=== PATIENT | female | born 1970 | race Caucasian/White ===

== ENCOUNTER 2018-02-24 12:36 | Inpatient (IN) ==
[2018-02-24 13:00] LABS: Bilirubin,Urine Negative (Negative); Blood,Urine Trace (Negative); Clarity,Urine Clear (Clear); Color,Urine Yellow (Yellow); Glucose,Urine (UA) Normal (Normal); Ketones,Urine Negative (Negative); Leukocyte Esterase,Urine Negative (Negative); Nitrite,Urine Negative (Negative); PH,Urine 6.5 pH Units (5.0-8.0); Protein,Urine >=300 mg/dL (Neg-Trace); Specific Gravity,Urine 1.017 (1.010-1.025); Urobilinogen,Urine Normal (Normal)
[2018-02-24 13:03] LABS: Bacteria,Urine None Seen per hpf (None-Few); Hyaline Casts,Urine None Seen per lpf (None-Few); Squamous Epithelial Cell,Urine Many per lpf (None-Few)
[2018-02-24 15:04] LABS: Albumin 4.2 g/dL (3.5-5.7); Albumin/Globulin Ratio 1.3 (1.1-2.2); Bilirubin,Direct 0.1 mg/dL (0.0-0.2); Bilirubin,Indirect 0.2 mg/dL (0.0-1.2); Bilirubin,Total 0.3 mg/dL (0.3-1.0); Calcium 9.2 mg/dL (8.6-10.3); Globulin 3.3 g/dL (2.4-3.5); Total Protein 7.5 g/dL (6.4-8.9)
[2018-02-24 15:18] LABS: Basophils % 0.4 %; Eosinophils # 0.1 K/mcL (0.0-0.6); Eosinophils % 0.8 %; Hematocrit 33.2 % (35.3-44.9); Hemoglobin 10.8 g/dL (11.5-15.4); Immature Granulocytes % 0.7 % (0-4); Lymphocytes # 1.6 K/mcL (0.6-4.6); Lymphocytes % 21.2 %; Mean Corpuscular HGB Conc 32.5 g/dL (31.6-35.5); Mean Corpuscular Hemoglobin 29.3 pg (28.0-33.3); Mean Platelet Volume 10.5 fL (9.4-12.4); Monocytes # 0.4 K/mcL (0.0-1.3); Monocytes % 4.7 %; Neutrophils # 5.6 K/mcL (1.6-8.9); Platelet Count 195 K/mcL (140-400); Red Blood Count 3.69 M/mcL (3.82-4.97); Red Cell Distribution Width 14.6 % (11.5-14.5); Segmented Neutrophils % 72.2 %
[2018-02-24] MEDS ORDERED: *HR* FentaNYL (PF) 100 MCG/2 ML VIAL IVP ONE ×2 (15:24→16:45)
[2018-02-24] MEDS ORDERED: Ondansetron 4 MG/2 ML VIAL IVP ONE (15:24)
[2018-02-24] MEDS ORDERED: 0.9 % Sodium Chloride 1,000 ML IVC ONE (15:42)
--- NOTE | 2018-02-24 15:45 | Emergency Department Note ---
Disposition Clinical Impression: Pyelonephritis, Left flank pain, Hyperkalemia Pneumonia Qualifiers: Pneumonia type: aspiration pneumonia Aspiration pneumonia type: due to gastric secretions Laterality: right Lung location: lower lobe of lung Qualified Code(s) : J69.0 - Pneumonitis due to inhalation of food and vomit Disposition: Admitted As Inpatient Condition: Fair General Adult HPI - General Chief complaint: ED Abdominal Pain Stated complaint: ABD PAIN Time Seen by Provider: 02/24/18 14:57 Source: patient Limitations: no limitations - History of Present Illness Pain Scale: 10 - Related Data Home Medications Medication Instructions Recorded Confirmed Allopurinol [Zyloprim 100 MG] 100 mg PO DAILY 02/24/18 02/24/18 Calcitriol [Rocaltrol] 0.25 mcg PO DAILY 02/24/18 02/24/18 Enalapril Maleate [Vasotec] 20 mg PO DAILY 02/24/18 02/24/18 Glimepiride [Amaryl] 4 mg PO QAM 02/24/18 02/24/18 Levothyroxine [Synthroid] 75 mcg PO 0630 02/24/18 02/24/18 Sodium Bicarbonate 650 mg PO BID 02/24/18 02/24/18 amLODIPine [Norvasc] 5 mg PO BID 02/24/18 02/24/18 Allergies Allergy/AdvReac Type Severity Reaction Status Date / Time No Known Allergies Allergy Verified 11/16/16 16:44 Past Medical History - Past Medical History Medical history: Reports: diabetes, hypertension, renal disease Psychiatric history: Reports: no psych history - Social History Smoking Status: Never smoker Smokeless Tobacco Status: No Alcohol use: Reports: none Drug use: Reports: none Physical Exam - General Limitations: no limitations General appearance: alert, in no apparent distress Course Vital Signs Temperature 97.9 F 02/24/18 12:44 Pulse Rate 96 02/24/18 12:44 Respiratory Rate 18 02/24/18 12:44 Blood Pressure 156/113 02/24/18 12:44 O2 Sat by Pulse Oximetry 100 02/24/18 12:44 Temperature 97.9 F 02/25/18 20:02 Pulse Rate 80 02/25/18 20:02 Respiratory Rate 18 02/25/18 20:02 Blood Pressure 140/87 02/25/18 20:02 O2 Sat by Pulse Oximetry 99 02/25/18 20:02 Oxygen Delivery Oxygen Delivery Room Air Medical Decision Making - Lab Data Result diagrams: 02/25/18 04:48 02/25/18 04:48 Lab Results 02/24/18 02/24/18 02/24/18 Range/Units 12:44 12:44 13:47 WBC (4.3-11.1) K/mcL RBC (3.82-4.97) M/mcL Hgb (11.5-15.4) g/dL Hct (35.3-44.9) % MCV (83.0-100.0) fL MCH (28.0-33.3) pg MCHC (31.6-35.5) g/dL RDW (11.5-14.5) % Plt Count (140-400) K/mcL MPV (9.4-12.4) fL Immature Gran % (0-4) % Seg Neutrophils % % Lymphocytes % % Monocytes % % Eosinophils % % Basophils % % Neutrophils # (1.6-8.9) K/mcL Lymphocytes # (0.6-4.6) K/mcL Monocytes # (0.0-1.3) K/mcL Eosinophils # (0.0-0.6) K/mcL Basophils # (0.0-0.2) K/mcL Sodium 138 (136-145) mEq/L Potassium 6.0 H (3.5-5.1) mEq/L Chloride 114 H (98-107) mEq/L Carbon Dioxide 16 L (23-29) mEq/L BUN 37 H (6-20) mg/dL Creatinine 2.85 H (0.60-1.20) mg/dL Est GFR ( Amer) 22 L (> 60) Est GFR (Non-Af Amer) 18 L (> 60) BUN/Creatinine Ratio 13 (6-26) Glucose 84 (70-105) mg/dL POC Glucose (70-99) mg/dL Calculated Osmolality 294 (280-300) Calcium 9.2 (8.6-10.3) mg/dL Total Bilirubin 0.3 (0.3-1.0) mg/dL Direct Bilirubin 0.1 (0.0-0.2) mg/dL Indirect Bilirubin 0.2 (0.0-1.2) mg/dL AST 15 (13-39) Units/L ALT 12 (7-52) Units/L Alkaline Phosphatase 116 H (34-104) Units/L Serum Total Protein 7.5 (6.4-8.9) g/dL Albumin 4.2 (3.5-5.7) g/dL Globulin 3.3 (2.4-3.5) g/dL Albumin/Globulin Ratio 1.3 (1.1-2.2) Amylase 54 (29-103) Units/L Lipase 19 (11-82) Units/L Urine Color Yellow (Yellow) Urine Clarity Clear (Clear) Urine pH 6.5 (5.0-8.0) pH Units Ur Specific [place] 1.017 (1.010-1.025) Urine Protein >=300 H (Neg-Trace) mg/dL Urine Glucose (UA) Normal (Normal) mg/dL Urine Ketones Negative (Negative) mg/dL Urine Blood Trace H (Negative) Urine Nitrite Negative (Negative) Urine Bilirubin Negative (Negative) Urine Urobilinogen Normal (Normal) mg/dL Ur Leukocyte Esterase Negative (Negative) Urine Microscopic RBC 3-5 H (0-3) per hpf Urine Microscopic WBC 5-15 H (0-3) per hpf Ur Squamous Epith Cells Many H (None-Few) per lpf Urine Bacteria None Seen (None-Few) per hpf Hyaline Casts None Seen (None-Few) per lpf Ur Culture Indicated? NO (NO) Urine Test Negative (Negative) 02/24/18 02/24/18 Range/Units 15:09 20:31 WBC 7.7 (4.3-11.1) K/mcL RBC 3.69 L (3.82-4.97) M/mcL Hgb 10.8 L (11.5-15.4) g/dL Hct 33.2 L (35.3-44.9) % MCV 90.0 (83.0-100.0) fL MCH 29.3 (28.0-33.3) pg MCHC 32.5 (31.6-35.5) g/dL RDW 14.6 H (11.5-14.5) % Plt Count 195 (140-400) K/mcL MPV 10.5 (9.4-12.4) fL Immature Gran % 0.7 (0-4) % Seg Neutrophils % 72.2 % Lymphocytes % 21.2 % Monocytes % 4.7 % Eosinophils % 0.8 % Basophils % 0.4 % Neutrophils # 5.6 (1.6-8.9) K/mcL Lymphocytes # 1.6 (0.6-4.6) K/mcL Monocytes # 0.4 (0.0-1.3) K/mcL Eosinophils # 0.1 (0.0-0.6) K/mcL Basophils # 0.0 (0.0-0.2) K/mcL Sodium (136-145) mEq/L Potassium (3.5-5.1) mEq/L Chloride (98-107) mEq/L Carbon Dioxide (23-29) mEq/L BUN (6-20) mg/dL Creatinine (0.60-1.20) mg/dL Est GFR ( Amer) (> 60) Est GFR (Non-Af Amer) (> 60) BUN/Creatinine Ratio (6-26) Glucose (70-105) mg/dL POC Glucose 78 (70-99) mg/dL Calculated Osmolality (280-300) Calcium (8.6-10.3) mg/dL Total Bilirubin (0.3-1.0) mg/dL Direct Bilirubin (0.0-0.2) mg/dL Indirect Bilirubin (0.0-1.2) mg/dL AST (13-39) Units/L ALT (7-52) Units/L Alkaline Phosphatase (34-104) Units/L Serum Total Protein (6.4-8.9) g/dL Albumin (3.5-5.7) g/dL Globulin (2.4-3.5) g/dL Albumin/Globulin Ratio (1.1-2.2) Amylase (29-103) Units/L Lipase (11-82) Units/L Urine Color (Yellow) Urine Clarity (Clear) Urine pH (5.0-8.0) pH Units Ur Specific [place] (1.010-1.025) Urine Protein (Neg-Trace) mg/dL Urine Glucose (UA) (Normal) mg/dL Urine Ketones (Negative) mg/dL Urine Blood (Negative) Urine Nitrite (Negative) Urine Bilirubin (Negative) Urine Urobilinogen (Normal) mg/dL Ur Leukocyte Esterase (Negative) Urine Microscopic RBC (0-3) per hpf Urine Microscopic WBC (0-3) per hpf Ur Squamous Epith Cells (None-Few) per lpf Urine Bacteria (None-Few) per hpf Hyaline Casts (None-Few) per lpf Ur Culture Indicated? (NO) Urine Test (Negative) Attestation Statement - Attestation Attestation: I examined this patient and my medical decision-making was reviewed with the DEICER INSPECTOR [employer]IC/PA/Advanced Practice Nurse/Resident Physician. I agree with the documented findings, disposition and treatment plan as described except to the extent set forth below. I did review the old record and saw the patient in the [facility] she does have a history of chronic renal failure who presents with gradual onset of left flank and left lower abdominal pain which began at home last night and is constant and she denies any dysuria or urinary frequency, blood in the urine or stool, vaginal bleeding or discharge, fever or vomiting. I did review the labs showing hyperkalemia and did add on a EKG and sash installer and IV fluids and the patient does also have some acidosis and will have a CT scan. She states her last CT of the abdomen was 5 years ago 1544 I did review the patient's EKG showing normal sinus rhythm with rate of 78 without acute ischemic change. Patient's CT does show inflammation of the left kidney as well as a new infiltrate and I did speak with her again and she does have a cough productive of clear sputum which started in the last several days did have a preceding upper respiratory infection. Patient will be admitted for IV antibiotics, she will receive an additional dose of intravenous pain medicine for her left flank pain. No ureteral obstructing stone is seen. 164
[2018-02-24] MEDS ORDERED: cefTRIAXone 1,000 MG in Water for inj. (sterile) 20 ML 20 ML IVPB ONE (16:45)
[2018-02-24] MEDS ORDERED: Azithromycin 250 MG TABLET PO ONE (16:45)
[2018-02-24] MEDS ORDERED: cefTRIAXone 1,000 MG in Water for inj. (sterile) 20 ML 20 ML IVP ONE (17:00)
--- NOTE | 2018-02-24 17:58 | Emergency Department Note ---
Disposition Clinical Impression: Pyelonephritis, Left flank pain, Hyperkalemia Pneumonia Qualifiers: Pneumonia type: due to unspecified organism Laterality: right Lung location: lower lobe of lung Qualified Code(s): J18.1 - Lobar pneumonia, unspecified organism Disposition: Admitted As Inpatient Condition: Fair Time of Disposition: 18:31 General Adult HPI - General Chief complaint: ED Abdominal Pain Stated complaint: ABD PAIN Time Seen by Provider: 02/24/18 14:57 Source: patient Limitations: no limitations Nursing Notes Reviewed: Yes Vital Signs Reviewed: Yes - History of Present Illness HPI Narrative: Patient is a 47-year-old female with a past medical history renal disease, left adrenalectomy, and kidney stones of presenting to the emergency department for the complaint of gradual onset left-sided flank pain radiating into the left lower quadrant of her abdomen. She states that the pain started yesterday evening around 1800 has been gradually worsening since then. She describes as a sharp stabbing pain that is constant without alleviating or exacerbating factors. She denies any fevers, chills, nausea, vomiting, chest pain, shortness of breath, dysuria, frequency, vaginal bleeding or vaginal discharge. Patient states that this pain does feel similar to her kidney stones in the past, which have required stents and ablation. Pain Scale: 10 - Related Data Home Medications Medication Instructions Recorded Confirmed Allopurinol [Zyloprim 100 MG] 100 mg PO DAILY 02/24/18 02/24/18 Calcitriol [Rocaltrol] 0.25 mcg PO DAILY 02/24/18 02/24/18 Enalapril Maleate [Vasotec] 20 mg PO DAILY 02/24/18 02/24/18 Glimepiride [Amaryl] 4 mg PO QAM 02/24/18 02/24/18 Levothyroxine [Synthroid] 75 mcg PO 0630 02/24/18 02/24/18 Sodium Bicarbonate 650 mg PO BID 02/24/18 02/24/18 amLODIPine [Norvasc] 5 mg PO BID 02/24/18 02/24/18 Allergies Allergy/AdvReac Type Severity Reaction Status Date / Time No Known Allergies Allergy Verified 11/16/16 16:44 All systems ED: reviewed and negative except as stated. Review of Systems: As Per HPI Constitutional: Denies: fever, chills Cardiovascular: Denies: chest pain, palpitations Respiratory: Denies: dyspnea Gastrointestinal: Reports: abdominal pain. Denies: nausea, vomiting, diarrhea Genitourinary: Denies: urgency, dysuria, frequency, hematuria, discharge, abnormal menses Musculoskeletal: Reports: back pain Integumentary: Denies: rash Past Medical History - Past Medical History Attestation: Yes The following information was validated with the patient. Medical history: Reports: diabetes, hypertension, renal disease Psychiatric history: Reports: no psych history - Social History Smoking Status: Never smoker Smokeless Tobacco Status: No Alcohol use: Reports: none Drug use: Reports: none Physical Exam CONSTITUTIONAL: Alert and oriented X3, well-nourished, well appearing, in no apparent distress. HEAD: Normocephalic; atraumatic. EYES: PERRL, no scleral icterus. NOSE: The nose is normal in appearance without rhinorrhea RESP: Normal chest excursion with respiration; breath sounds clear and equal bilaterally; no wheezes, rhonchi, or rales CARD: Regular rhythm, without murmurs, rub or gallop ABD: Non-distended; non-tender, soft,without rigidity, rebound or guarding. Patient has essentially no pain with palpation. SKIN: Normal for age and race; warm and dry; no apparent lesions - General Limitations: no limitations General appearance: alert, in no apparent distress Course Course Narrative: At this time the plan is to treat the patient's pain will also order lab work to evaluate for abdominal etiology of the patient's pain which will include hepatic panel, metabolic panel, CBC, UA and we will also perform a CT scan of the abdomen and pelvis to rule out a kidney stone. Discussed this with the patient she agrees with this plan. - Reevaluation(s) Reevaluation #1: On reevaluation the patient states that her pain improved for a few minutes with the initial dose of fentanyl however her pain came right back so plan is to give her an additional dose that that does not work we will consider a different medication. The patient's CT scan of her abdomen and pelvis was interpreted by the radiologist as a possible right lower lobe infectious versus inflammatory process and nonspecific left perinephric edema/inflammation. On reevaluation of the patient she does admit to a cough over the past 3 days. Given these findings the plan at this time is to start the patient antibiotic coverage for a possible pneumonia as well as pyelonephritis. The patient's UA was negative for infection at this time, however given the CT findings with the inflammation that is perinephric we will initiate antibiotics. Discussed this plan with the patient I also discussed this plan with the hospitalist on-call, Dr. Hernandez, and she agrees to accept the patient. Time: 18:57 Vital Signs Temperature 97.9 F 02/24/18 12:44 Pulse Rate 96 02/24/18 12:44 Respiratory Rate 18 02/24/18 12:44 Blood Pressure 156/113 02/24/18 12:44 O2 Sat by Pulse Oximetry 100 02/24/18 12:44 Temperature 97.6 F 02/24/18 23:28 Pulse Rate 77 02/24/18 23:28 Respiratory Rate 16 02/24/18 23:28 Blood Pressure 128/77 02/24/18 23:28 O2 Sat by Pulse Oximetry 97 02/24/18 23:28 Oxygen Delivery Oxygen Delivery Room Air Medical Decision Making - Medical Records Medical records reviewed: Yes I reviewed the patient's medical records. - Lab Data Lab results reviewed: Yes I reviewed the patient's lab results. Result diagrams: 02/24/18 15:09 02/24/18 22:46 Lab Results 02/24/18 02/24/18 02/24/18 Range/Units 12:44 12:44 13:47 WBC (4.3-11.1) K/mcL RBC (3.82-4.97) M/mcL Hgb (11.5-15.4) g/dL Hct (35.3-44.9) % MCV (83.0-100.0) fL MCH (28.0-33.3) pg MCHC (31.6-35.5) g/dL RDW (11.5-14.5) % Plt Count (140-400) K/mcL MPV (9.4-12.4) fL Immature Gran % (0-4) % Seg Neutrophils % % Lymphocytes % % Monocytes % % Eosinophils % % Basophils % % Neutrophils # (1.6-8.9) K/mcL Lymphocytes # (0.6-4.6) K/mcL Monocytes # (0.0-1.3) K/mcL Eosinophils # (0.0-0.6) K/mcL Basophils # (0.0-0.2) K/mcL Sodium 138 (136-145) mEq/L Potassium 6.0 H (3.5-5.1) mEq/L Chloride 114 H (98-107) mEq/L Carbon Dioxide 16 L (23-29) mEq/L BUN 37 H (6-20) mg/dL Creatinine 2.85 H (0.60-1.20) mg/dL Est GFR ( Amer) 22 L (> 60) Est GFR (Non-Af Amer) 18 L (> 60) BUN/Creatinine Ratio 13 (6-26) Glucose 84 (70-105) mg/dL Calculated Osmolality 294 (280-300) Calcium 9.2 (8.6-10.3) mg/dL Total Bilirubin 0.3 (0.3-1.0) mg/dL Direct Bilirubin 0.1 (0.0-0.2) mg/dL Indirect Bilirubin 0.2 (0.0-1.2) mg/dL AST 15 (13-39) Units/L ALT 12 (7-52) Units/L Alkaline Phosphatase 116 H (34-104) Units/L Serum Total Protein 7.5 (6.4-8.9) g/dL Albumin 4.2 (3.5-5.7) g/dL Globulin 3.3 (2.4-3.5) g/dL Albumin/Globulin Ratio 1.3 (1.1-2.2) Amylase 54 (29-103) Units/L Lipase 19 (11-82) Units/L Urine Color Yellow (Yellow) Urine Clarity Clear (Clear) Urine pH 6.5 (5.0-8.0) pH Units Ur Specific [place] 1.017 (1.010-1.025) Urine Protein >=300 H (Neg-Trace) mg/dL Urine Glucose (UA) Normal (Normal) mg/dL Urine Ketones Negative (Negative) mg/dL Urine Blood Trace H (Negative) Urine Nitrite Negative (Negative) Urine Bilirubin Negative (Negative) Urine Urobilinogen Normal (Normal) mg/dL Ur Leukocyte Esterase Negative (Negative) Urine Microscopic RBC 3-5 H (0-3) per hpf Urine Microscopic WBC 5-15 H (0-3) per hpf Ur Squamous Epith Cells Many H (None-Few) per lpf Urine Bacteria None Seen (None-Few) per hpf Hyaline Casts None Seen (None-Few) per lpf Ur Culture Indicated? NO (NO) Urine Test Negative (Negative) 02/24/18 Range/Units 15:09 WBC 7.7 (4.3-11.1) K/mcL RBC 3.69 L (3.82-4.97) M/mcL Hgb 10.8 L (11.5-15.4) g/dL Hct 33.2 L (35.3-44.9) % MCV 90.0 (83.0-100.0) fL MCH 29.3 (28.0-33.3) pg MCHC 32.5 (31.6-35.5) g/dL RDW 14.6 H (11.5-14.5) % Plt Count 195 (140-400) K/mcL MPV 10.5 (9.4-12.4) fL Immature Gran % 0.7 (0-4) % Seg Neutrophils % 72.2 % Lymphocytes % 21.2 % Monocytes % 4.7 % Eosinophils % 0.8 % Basophils % 0.4 % Neutrophils # 5.6 (1.6-8.9) K/mcL Lymphocytes # 1.6 (0.6-4.6) K/mcL Monocytes # 0.4 (0.0-1.3) K/mcL Eosinophils # 0.1 (0.0-0.6) K/mcL Basophils # 0.0 (0.0-0.2) K/mcL Sodium (136-145) mEq/L Potassium (3.5-5.1) mEq/L Chloride (98-107) mEq/L Carbon Dioxide (23-29) mEq/L BUN (6-20) mg/dL Creatinine (0.60-1.20) mg/dL Est GFR ( Amer) (> 60) Est GFR (Non-Af Amer) (> 60) BUN/Creatinine Ratio (6-26) Glucose (70-105) mg/dL Calculated Osmolality (280-300) Calcium (8.6-10.3) mg/dL Total Bilirubin (0.3-1.0) mg/dL Direct Bilirubin (0.0-0.2) mg/dL Indirect Bilirubin (0.0-1.2) mg/dL AST (13-39) Units/L ALT (7-52) Units/L Alkaline Phosphatase (34-104) Units/L Serum Total Protein (6.4-8.9) g/dL Albumin (3.5-5.7) g/dL Globulin (2.4-3.5) g/dL Albumin/Globulin Ratio (1.1-2.2) Amylase (29-103) Units/L Lipase (11-82) Units/L Urine Color (Yellow) Urine Clarity (Clear) Urine pH (5.0-8.0) pH Units Ur Specific [place] (1.010-1.025) Urine Protein (Neg-Trace) mg/dL Urine Glucose (UA) (Normal) mg/dL Urine Ketones (Negative) mg/dL Urine Blood (Negative) Urine Nitrite (Negative) Urine Bilirubin (Negative) Urine Urobilinogen (Normal) mg/dL Ur Leukocyte Esterase (Negative) Urine Microscopic RBC (0-3) per hpf Urine Microscopic WBC (0-3) per hpf Ur Squamous Epith Cells (None-Few) per lpf Urine Bacteria (None-Few) per hpf Hyaline Casts (None-Few) per lpf Ur Culture Indicated? (NO) Urine Test (Negative) - Radiology Data Radiology results reviewed: Yes I reviewed the patient's radiology results. Abdomen/Pelvis CT 02/24/18 15:24 IMPRESSION: Ill-defined tree-in-bud opacities within the right lower lobe suggestive of infectious or inflammatory process. Subtle nodular opacities within the left lower lung. Follow-up CT of the chest in 2-3 months is suggested to document resolution. Nonspecific left perinephric edema/inflammation. Correlation with urinalysis for possible infectious process suggested. No bowel obstruction or inflammation. No free intracranial air or fluid. Stable appearing lower abdominal wall fat containing hernia. Rounded fat containing mass within the soft tissues overlying the right sacrum, apparently more condensed and smaller on current examination as compared to the previous study of 05/09/2012. Given that this was present on the previous examination of several years prior, this finding is most likely benign and is suggestive of fat necrosis. However, follow-up CT of the pelvis and 3-4 months can be considered as clinically indicated. D/ / Ghassan Moreau MD / Ghassan Moreau MD Interpreting Provider: Ghassan Moreau MD Chest X-Ray 02/24/18 17:57 IMPRESSION: No acute process. D/ / Jim Stanford MD / Jim Stanford MD Interpreting Provider: Jim Stanford MD
[2018-02-24] MEDS ORDERED: *HR* Nalbuphine 10 MG/ML AMPUL IV STA ×2 (18:53→21:01)
--- NOTE | 2018-02-24 20:14 | Internal Med History&Physical ---
Addendum entered and electronically signed by Milagro Tineo MD 02/24/18 22:02: Hyperkalemia , Likely secondary to chronic decreased GFR. Onset, appears gradual ED courses: EKG in ED. Pt received Sodium Kayexalate Continuous telemetry on floors Repeat BMP pending Continue medical management, based on repeat BMP Continue home bicarbonate Nephrology on consult Original Note: <Milagro Tineo - Last Filed: 02/24/18 21:34> Date of Encounter: 02/24/18 Time of Encounter: 19:54 Assessment and Plan (1) Pyelonephritis Current visit: Yes Status: Acute 47-year-old female with left flank pain and CVA tenderness likely secondary to pyelonephritis vs. nephrolithiasis Urinalysis, with urine culture from clean-catch midstream pending Abdomen and pelvis CT did not demonstrate abscess, remain at high clinical vigilance for complications due to patient's previous history of recurrent nephrolithiasis Outpatient, lab note of elevated uric acid level in March 2017 Renal ultrasound pending Pain management Commence ceftriaxone 14 days, per IDSA guidelines Discussed plan with patient, patient amenable to plan (2) Acute kidney injury superimposed on CKD Current visit: Yes Status: Acute LEONCIO likely secondary to acute interstitial nephritis, with WBCs and RBCs seen on UA, with negative culture, however post-obstructive etiology cannot be excluded CKD Stage 4: GFR in 2017, per outpatient lab 22 IV hydration Avoid nephrotoxic insults -Will hold lisinopril at this time Control of hemodynamic- serial vital signs LEONCIO workup pending Retroperitoneal U/S pending Consult to nephrology, appreciate recs Diet: Diabetic, Renal Diet (3) Abnormal finding on CT scan Current visit: Yes Status: Acute Abdomen/Pelvis CT 02/24/18 15:24 IMPRESSION: Ill-defined tree-in-bud opacities within the right lower lobe suggestive of infectious or inflammatory process. Subtle nodular opacities within the left lower lung. Follow-up CT of the chest in 2-3 months is suggested to document resolution. Recommend Follow-up CT of the chest in 2-3 months, per radiology recommendation. (4) Pneumonia Current visit: Yes Status: Acute Pt endorses cough in ED, however no radiographic evidence of pneumonia at this time. 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 Hold lisinopril due to LEONCIO. PRN hydralazine for BP. Qualifiers: Hypertension type: unspecified Qualified Code(s): I10 - Essential (primary ) hypertension (6) Hypothyroidism Current visit: Yes Status: Chronic Continue home medications Qualifiers: Hypothyroidism type: acquired Qualified Code(s): E03.9 - Hypothyroidism, unspecified (7) Diabetes Current visit: Yes Status: Chronic ISS, will adjust as needed. Acchuchecks q6h. Hypoglycemia protocol ordered Qualifiers: Diabetes mellitus type: type 2 Diabetes mellitus complication status: with kidney complications Diabetes mellitus complication detail: with chronic kidney disease Chronic kidney disease stage: stage 4 (severe) Qualified Code (s): E11.22 - Type 2 diabetes mellitus with diabetic chronic kidney disease; N18.4 - Chronic kidney disease, stage 4 (severe); N18.4 - Chronic kidney disease , stage 4 (severe); N18.4 - Chronic kidney disease, stage 4 (severe); N18.4 - Chronic kidney disease, stage 4 (severe) (8) DVT prophylaxis Current visit: Yes Status: Acute Heparin subcutaneous 5000 U BID Internal Medicine - H&P: HPI Chief complaint: Flank Pain Admitted From: Home History of present illness: Ms. Gray is a 47 year old female with chronic kidney disease stage who presents with gradual onset of left flank pain with and lower abdominal pain, onset last night. Pain started yesterday evening in the back and then radiated to left groin, at a 10/10 and is constant and remains as a 10/10 now. Patient denies dysuria, urinary frequency, hematuria, vaginal bleeding. Quality : "sharp " "stabbing" . No alleviating or exacerbating factors. Symptoms are similar to past kidney stones, of which she's has 2 in the past 10 years, one of which required lithotripsy. Denies fever or emesis. No shortness of breath. No chest pain. Pt maintains she does not take any opioid medications at home. Pt was placed on allopurinol a year ago. Past Med Surg Social Fam HX - Past Medical History Medical history: diabetes, hypertension, renal disease Psychiatric history: no psych history - Social History Smoking Status: Never smoker Smokeless Tobacco Status: No Alcohol use: none Drug use: none Internal Medicine - H&P: Meds Allopurinol [Zyloprim 100 MG] 100 mg PO DAILY 02/24/18 [History] Calcitriol [Rocaltrol] 0.25 mcg PO DAILY 02/24/18 [History] Enalapril Maleate [Vasotec] 20 mg PO DAILY 02/24/18 [History] Glimepiride [Amaryl] 4 mg PO QAM 02/24/18 [History] Levothyroxine [Synthroid] 75 mcg PO 0630 02/24/18 [History] Sodium Bicarbonate 650 mg PO BID 02/24/18 [History] amLODIPine [Norvasc] 5 mg PO BID 02/24/18 [History] 3 Allergy/AdvReac Type Severity Reaction Status Date / Time No Known Allergies Allergy Verified 11/16/16 16:44 All Systems PM: A 10-system review of systems was performed and is negative for pertinent findings except as documented above in the HPI. - Constitutional Constitutional: as per HPI - Cardiovascular Cardiovascular ROS IM: as per HPI - Respiratory Respiratory: as per HPI - Gastrointestinal Gastrointestinal: as per HPI - Musculoskeletal Musculoskeletal ROS IM: as per HPI - Constitutional Vitals: Temp Pulse Resp BP Pulse Ox 97.9 F 75 14 154/92 98 02/24/18 12:44 02/24/18 19:02 02/24/18 19:02 02/24/18 19:02 02/24/18 19:02 General appearance: Present: mild distress, A&O X 3, obese Exam: short answers - Head Head exam: Present: atraumatic, normocephalic - Respiratory Respiratory exam: Absent: accessory muscle use, chest wall tenderness, respiratory distress, wheezes Additional comments: crackles - Cardiovascular Cardiovascular exam: Present: RRR, +S1, +S2 - GI/Abdominal GI/Abdominal exam: Present: normal bowel sounds, no peritoneal signs. Absent: rigid Additional comments: No flank pain on palpation. No flank discoloration on either side. CVA tenderness on L. No CVA tenderness on R. - Extremities Exam Extremities exam: Present: normal capillary refill. Absent: cyanotic, pedal edema, tenderness - Neurological Exam Neurological exam: Present: alert, strengths equal and symetr throughout. Absent: facial droop, speech deficit Internal Med - H&P Results - Labs CBC & Chem 7: 02/24/18 15:09 02/24/18 13:47 - Impressions ITS Impressions Abdomen/Pelvis CT 02/24/18 15:24 IMPRESSION: Ill-defined tree-in-bud opacities within the right lower lobe suggestive of infectious or inflammatory process. Subtle nodular opacities within the left lower lung. Follow-up CT of the chest in 2-3 months is suggested to document resolution. Nonspecific left perinephric edema/inflammation. Correlation with urinalysis for possible infectious process suggested. No bowel obstruction or inflammation. No free intracranial air or fluid. Stable appearing lower abdominal wall fat containing hernia. Rounded fat containing mass within the soft tissues overlying the right sacrum, apparently more condensed and smaller on current examination as compared to the previous study of 05/09/2012. Given that this was present on the previous examination of several years prior, this finding is most likely benign and is suggestive of fat necrosis. However, follow-up CT of the pelvis and 3-4 months can be considered as clinically indicated. D/ / Ghassan Moreau MD / Ghassan Moreau MD Interpreting Provider: Ghassan Moreau MD Chest X-Ray 02/24/18 17:57 IMPRESSION: No acute process. D/ / Jim Stanford MD / Jim Stanford MD Interpreting Provider: Jim Stanford MD INATION: RETROPERITONEAL ULTRASOUND OF THE KIDNEYS AND URINARY BLADDER 04/04/2017 COMPARISON: CT abdomen/pelvis without contrast 05/09/2012. HISTORY: ESSENTIAL PRIMARY HYPERTENSION Initial evaluation of the central primary hypertension over approximately 5 years. History of diabetes. FINDINGS: Kidneys: Right: Measures 9.5 cm in length with normal contour and parenchymal echogenicity. Cortical thickness of approximately 1.1 cm. No hydronephrosis. No evidence of calculi. No solid or cystic mass. No perinephric fluid collections. Left: Limited evaluation of the inferior pole with the kidney measuring approximately 9.1 cm in length. Normal contour and parenchymal echogenicity. Cortical thickness of approximately 1.2 cm. No hydronephrosis or evidence of calculi. No solid or cystic mass. No perinephric fluid collections. Bladder: The bladder is mildly distended with no wall thickening. No intraluminal calculus or mass. Prevoid volume of 125 mL. The patient was able to completely decompress after voiding. US/US retroperitoneal comp IMPRESSION: 1. Normal bilateral kidneys with no asymmetric atrophy to suggest renal artery hypertension. 2. Limited evaluation of the bladder due to inadequate distention at prevoid. No significant postvoid residual volume. D/ / 04/04/2017 11:36:51 Aramis Perez MD / ministerio Interpreting Provider: Aramis Perez MD <Wilmer Larose - Last Filed: 02/25/18 03:31> Date of Encounter: 02/24/18 Internal Medicine - H&P: HPI History of present illness: Ms. Gray is a 47 year old female All Systems PM: A 10-system review of systems was performed and is negative for pertinent findings except as documented above in the HPI. - Constitutional Vitals: Temp Pulse Resp BP Pulse Ox 97.6 F 77 16 128/77 97 02/24/18 23:28 02/24/18 23:28 02/24/18 23:28 02/24/18 23:28 02/24/18 23:28 Internal Med - H&P Results - Labs CBC & Chem 7: 02/24/18 15:09 02/24/18 22:46 Labs: BMP 02/24/18 22:46 Sodium 138 Potassium 5.3 H Chloride 115 H Carbon Dioxide 18 L BUN 35 H Creatinine 2.80 H Glucose 97 Calcium 8.6 - Attending Attestation I examined this patient and my medical decision-making was reviewed with the Resident Physician Dr. Tineo. I agree with the documented findings, disposition and treatment plan as described except to the extent set forth below. Ms. Gray is a 47 year old female with chronic kidney disease stage who presents with gradual onset of left flank pain with and lower abdominal pain, onset last night. Pt stats she does have some cough too. Denied any CP / SOB. Denied any fever or chills. Her pain is 9/10 in severity. Gen: A, A, O x 3. Mild distress with pain Chest: Diminished BS b/l Back: Left CVA tenderness Heart: S1S2+ RRR No murmurs a/p 1. Severe left flank pain - ?? Pyelonephritis CT of Abd showed Left perinephric edema / inflammation will treat with Rocephin f/u on Urine cx 2. Acute hyperkalemia - due to dehydration + CKD-3 No acute EKG changes Kayexalate ordered repeat K + 5.3 3. LEONCIO with CKD-4 IV hydration 4. Acute pneumonia - mostly bacterial CT showed atelectasis vs pneumonia in Rt LL cont Rocephin
[2018-02-24] MEDS ORDERED: Naloxone 0.4 MG/ML INJ IVP PRN (20:58)
[2018-02-24] MEDS ORDERED: *HR* Meperidine 25 MG/ML SYRINGE IVP PRN (21:13)
[2018-02-24] MEDS: MORPHINE SUL Oral CONC 10 MG/0.5 ML ORAL.SYG SL PRN (21:27)
[2018-02-24] MEDS: *HR* Heparin 5,000 UNIT/ML VIAL SQ SCH (21:29)
[2018-02-24] MEDS: 0.9 % Sodium Chloride 1,000 ML IVC SCH (21:29)
[2018-02-24] MEDS ORDERED: Dextrose Gel 15 GM/37.5 ML TUBE PO PRN ×2 (21:59)
[2018-02-24] MEDS ORDERED: *HR* Dextrose 50 % in Water (Syg) 50 ML SYRINGE IVP PRN (21:59)
[2018-02-24] MEDS ORDERED: D5% in Water 1,000 ML IVC PRN (21:59)
[2018-02-24 23:18] LABS: Calcium 8.6 mg/dL (8.6-10.3); Magnesium 1.7 mg/dL (1.6-2.6); Potassium 5.3 mEq/L (3.5-5.1)
[2018-02-25] MEDS: MORPHINE SUL Oral CONC 10 MG/0.5 ML ORAL.SYG SL PRN (01:51)
[2018-02-25 05:24] LABS: Basophils % 0.4 %; Eosinophils # 0.1 K/mcL (0.0-0.6); Hematocrit 28.4 % (35.3-44.9); Immature Granulocytes % 0.6 % (0-4); Lymphocytes # 1.4 K/mcL (0.6-4.6); Mean Corpuscular HGB Conc 30.6 g/dL (31.6-35.5); Mean Corpuscular Hemoglobin 28.2 pg (28.0-33.3); Mean Corpuscular Volume 92.2 fL (83.0-100.0); Mean Platelet Volume 10.8 fL (9.4-12.4); Monocytes # 0.2 K/mcL (0.0-1.3); Monocytes % 4.6 %; Neutrophils # 3.1 K/mcL (1.6-8.9); Platelet Count 165 K/mcL (140-400); Red Blood Count 3.08 M/mcL (3.82-4.97); Red Cell Distribution Width 14.7 % (11.5-14.5); Segmented Neutrophils % 64.4 %
[2018-02-25 05:30] LABS: Hemoglobin 8.7 g/dL (11.5-15.4)
[2018-02-25 05:48] LABS: Calcium 8.2 mg/dL (8.6-10.3); Potassium 5.2 mEq/L (3.5-5.1)
[2018-02-25 05:49] LABS: Albumin 3.2 g/dL (3.5-5.7); Calcium 8.3 mg/dL (8.6-10.3); Phosphorous 4.9 mg/dL (2.7-4.5); Potassium 5.1 mEq/L (3.5-5.1)
[2018-02-25] MEDS: *HR* Heparin 5,000 UNIT/ML VIAL SQ SCH ×2 (07:55→17:49)
[2018-02-25] MEDS: 0.9 % Sodium Chloride 1,000 ML IVC SCH (07:56)
[2018-02-25] MEDS: Insulin LISPRO 300 UNITS/3 ML VIAL SQ SCH ×3 (10:35→17:10)
[2018-02-25] MEDS: amLODIPine 5 MG TABLET PO SCH ×2 (10:36→20:41)
[2018-02-25] MEDS: cefTRIAXone 1,000 MG in Water for inj. (sterile) 20 ML 10 ML IVP SCH (10:37)
[2018-02-25] MEDS: levoFLOXacin 750 MG TABLET PO SCH (14:10)
[2018-02-25] MEDS ORDERED: Acetaminophen 325 MG TABLET PO PRN (15:11)
--- NOTE | 2018-02-25 16:01 | Nephrology Consult Note ---
Date of Encounter: 02/25/18 Time of Encounter: 11:35 Assessment and Plan (1) CKD (chronic kidney disease) stage 4, GFR 15-29 ml/min Current Visit: Yes Status: Acute CKD 4 in setting of diabetic and/or hypertensive nephropathy, chronic NSAID use. Has history of renal stone times one event 15 years ago requiring lithotripsy/stent. History of LEONCIO not requring HD. Baseline creat 2.2-2.4, egfr 21-23. Last OV Aug 2017. Renal fct improving CT abd/pelvis-no hydronephrosis, no renal calculi. Urine negative. Renal US pending. Will continue to monitor. I& O's. Avoid nephrotoxins. History of Present Illness - Reason for Consult Chronic Kidney Disease - History of Present Illness Ms. Gray is a 47 year old patient known to practice with CKD 4 in setting of diabetic and/or hypertensive nephropathy, chronic NSAID use. Has history of renal stone times one event 15 years ago requiring lithotripsy/stent. History of LEONCIO not requring HD. Baseline creat 2.2-2.4, egfr 21-23. Ms. Gray presented to ER yesterday with left flank pain that radiated to left lower quadrant. She denied dysuria or frequency, vomiting or diarrhea. Denies NSAID use. CT abd/ pelvis- no hydronephrosis, no calculi, mild left perinephric inflammatory change. Incidental finding of right lower lobe opacities which when questioned, patient admitted. Started on Antibiotic coverage for possible pneumonia, possible pyelonephritis. Urine was negative. Initial creat 2.85, today 2.68. Documented urine output of 700cc today.At time of consult patient was resting quietly though stated her pain was bad and had asked for pain medication from nursing. IV normal saline 100cc/hr. Renal US, urine culture pending. Past Med Surg Social Fam HX - Past Medical History Medical history: diabetes, hypertension, renal disease Psychiatric history: no psych history - Social History Smoking Status: Never smoker Smokeless Tobacco Status: No Alcohol use: none Drug use: none Medications and Allergies Allopurinol [Zyloprim 100 MG] 100 mg PO DAILY 02/24/18 [History] Calcitriol [Rocaltrol] 0.25 mcg PO DAILY 02/24/18 [History] Enalapril Maleate [Vasotec] 20 mg PO DAILY 02/24/18 [History] Glimepiride [Amaryl] 4 mg PO QAM 02/24/18 [History] Levothyroxine [Synthroid] 75 mcg PO 0630 02/24/18 [History] Sodium Bicarbonate 650 mg PO BID 02/24/18 [History] amLODIPine [Norvasc] 5 mg PO BID 02/24/18 [History] 3 Allergy/AdvReac Type Severity Reaction Status Date / Time No Known Allergies Allergy Verified 11/16/16 16:44 Review of Systems All Systems: reviewed and no additional remarkable complaints except as stated Exam - Vital Signs Vital signs: Initial Vital Signs Temp Pulse Resp BP Pulse Ox 97.9 F 96 18 156/113 100 02/24/18 12:44 02/24/18 12:44 02/24/18 12:44 02/24/18 12:44 02/24/18 12:44 Vital Signs - Last 8 Hours Temp Pulse Resp BP Pulse Ox 02/25/18 11:19 97.6 F 72 15 136/90 100 02/25/18 08:27 100 Intake and Output 02/24/18 02/25/18 02/25/18 23:59 07:59 15:59 Intake Total 120 / 140 1360 / 1360 1850 / 1850 Output Total 400 / 400 650 / 650 Balance 120 / 140 960 / 960 1200 / 1200 Intake: IV Fluids 1000 / 1000 10 / 10 0.9 % Sodium Chloride 1,000 ML 1000 / 1000 @ 100 mls/hr IVC .Q10H [facility] Rx#: [id number] Rocephin 1,000 MG In Water for 10 10 inj. (sterile) 10 ML @ 300 mls/ hr IVP DAILY [facility] Rx#:[id number] Oral 120 / 120 360 / 360 1840 / 1840 Output: Urine 400 / 400 650 / 650 Other: Meal Lunch Percent of Meal Consumed 50% # Voids 1 Weight 129.9 kg Blood Glucose* 80 80 125 Patient Weight 02/25/18 23:59 Weight 129.9 kg - General Appearance General appearance: well-developed, well-nourished, appears started age EENT: mucous membranes moist Neck: no JVD Respiratory: clear Cardiology: no edema, regular rate, regular rhythm Gastrointestinal: normoactive bowel sounds, no tenderness Integumentary: warm and dry Neurologic: alert and oriented x3 Results - Lab Results 02/25/18 04:48 02/25/18 04:48 Most recent lab results Calcium 8.3 mg/dL (8.6-10.3) L 02/25/18 04:48 Phosphorus 4.9 mg/dL (2.7-4.5) H 02/25/18 04:48 Magnesium 1.7 mg/dL (1.6-2.6) 02/24/18 22:46 Urine Sodium 123.2 mEq/L 02/25/18 05:10 Consult Discharge Plan - Plan Referrals: Jennifer hCand MD [Primary Care Provider] -
[2018-02-25] MEDS: *HR* HYDROcodone/Acet 5/325 mg TABLET PO PRN ×2 (17:09→21:11)
--- NOTE | 2018-02-25 17:34 | Internal Med Progress Note ---
<Mitul Dimas - Last Filed: 02/25/18 17:31> Date of Encounter: 02/25/18 Time of Encounter: 10:15 - Assessment and plan (1) Pyelonephritis Current Visit: Yes Status: Suspected Assessment and plan: Suspected pyelonephritis Patient's symptoms are consistent with pyelonephritis, and is seen on CT The patient has been started on Rocephin and seems to be improving Urinalysis does not demonstrate significant UTI, however there is some hematuria We will modify the patient's antibiotic regimen to fit pneumonia as well Is the patient may have aspiration pneumonia will switch to Levaquin Nephrology has seen the patient and recommends retroperitoneal ultrasound (2) Pneumonia Current Visit: Yes Status: Acute Assessment and plan: Right lower lobe pneumonia, likely aspiration The patient does admit that she has significant heartburn and reflux Admits to waking with acidic taste in her mouth, and sometimes increased cough Aspiration cannot be ruled out in this patient and location of right lower lobe pneumonia is consistent We will from the patient from Rocephin to Levaquin Continue to monitor Qualifiers: Pneumonia type: aspiration pneumonia Aspiration pneumonia type: due to gastric secretions Laterality: right Lung location: lower lobe of lung Qualified Code(s): J69.0 - Pneumonitis due to inhalation of food and vomit (3) CKD (chronic kidney disease) Current Visit: Yes Status: Acute Assessment and plan: CKD Stage 4 Baseline creat 2.2-2.4, egfr 21-23 Patient is above baseline, but improving Nephrology is on board, appreciate recommendations Qualifiers: Chronic kidney disease stage: stage 4 (severe) Qualified Code(s): N18.4 - Chronic kidney disease, stage 4 (severe) (4) Anemia Current Visit: Yes Status: Acute Assessment and plan: Anemia of chronic disease related to kidney function Patient as Hgb of 8.7, roughly consistent with prior baseline Reports no signs or symptoms associated with bleeding We will continue to monitor Qualifiers: Anemia type: due to chronic kidney disease Chronic kidney disease stage: stage 4 (severe) Qualified Code(s): N18.4 - Chronic kidney disease, stage 4 ( severe); D63.1 - Anemia in chronic kidney disease; D63.1 - Anemia in chronic kidney disease (5) Diabetes Current Visit: Yes Status: Chronic Assessment and plan: DM2, apparently well controlled Blood glucose has remained low throughout admission We will continue SSI Qualifiers: Diabetes mellitus type: type 2 Diabetes mellitus assisted insulin use: without assisted use Diabetes mellitus complication status: with kidney complications Diabetes mellitus complication detail: with chronic kidney disease Chronic kidney disease stage: stage 4 (severe) Qualified Code(s): E11.22 - Type 2 diabetes mellitus with diabetic chronic kidney disease; N18.4 - Chronic kidney disease, stage 4 (severe); N18.4 - Chronic kidney disease, stage 4 (severe); N18.4 - Chronic kidney disease, stage 4 (severe); N18.4 - Chronic kidney disease, stage 4 (severe) (6) DVT prophylaxis Current Visit: Yes Status: Acute Assessment and plan: SQ Heparin - Time Spent With Patient Total time spent is greater than 50% in coordination of care (as documented) at patient's floor/unit and/or counseling patient: - Subjective Interval history: The patient is resting comfortably in bed at time of examination. She is accompanied by his seem to be her 2 children and appears to be relaxed without significant distress at the time of our discussion. She explains that her pain has not decreased approximately 3-4 out of 10, and it is specifically in her left flank with some radiation towards her left lower abdomen. She says that the pain is not exactly similar to the time that she has had kidney stones in the past, however it is somewhat similar. She does feel that she would need something new for pain medication, as in her opinion occasions that we have given her are not sufficient. She says that in the ER she received 2 doses of fentanyl, which in her opinion was not strong enough and did not help her in any way. Further, the patient has received sublingual morphine, which she says has a foul taste and she cannot stomach. She says that the pill that would work best for her Istalol daily and asked that we give her that instead. - Constitutional Vitals: Temp Pulse Resp BP Pulse Ox 97.8 F 77 15 144/86 99 02/25/18 16:00 02/25/18 16:00 02/25/18 16:00 02/25/18 16:00 02/25/18 16:00 General appearance: Present: mild distress, A&O X 3, obese Exam: Gen: Vitals noted. No acute distress. Appears comfortable and relaxed. AAOx3 HEENT: oropharynx clear with poor dentition, Normocephalic, atraumatic Neck: Supple. No adenopathy. Cardiac: RRR, no murmur, +S1/S2 Pulmonary: CTA bilaterally, no wheezes, rales or rhonchi, equal chest expansion Abdomen: soft, minimal tenderness to palpation of left lower quadrant Back: Left sided CVA tenderness is present MSK: ROM intact, no joint swelling noted Extremities: no BLE edema, nontender calf, no cyanosis or clubbing Neuro: moves all extremities, no focal deficits Psych: Appropriate mood and behavior. Internal Medicine: Result - Labs CBC & Chem 7: 02/25/18 04:48 02/25/18 04:48 Labs: Short CBC 02/25/18 Range/Units 04:48 WBC 4.8 (4.3-11.1) K/mcL Hgb 8.7 L D (11.5-15.4) g/dL Hct 28.4 L (35.3-44.9) % Plt Count 165 (140-400) K/mcL Neutrophils # 3.1 (1.6-8.9) K/mcL BMP 02/24/18 02/25/18 02/25/18 22:46 04:48 04:48 Sodium 138 139 140 Potassium 5.3 H 5.2 H 5.1 Chloride 115 H 119 H 117 H Carbon Dioxide 18 L 17 L 17 L BUN 35 H 33 H 34 H Creatinine 2.80 H 2.65 H 2.68 H Glucose 97 67 L 68 L Calcium 8.6 8.2 L 8.3 L Liver Function 02/25/18 Range/Units 04:48 Albumin 3.2 L (3.5-5.7) g/dL - Impressions Impressions Retroperitoneum Ultrasound 02/25/18 15:30 IMPRESSION: Negative evaluation for obstructive uropathy. Color/power imaging was not performed, which is necessary to assess for acute pyelonephritis. D/ / Rodolfo Sparks / Rodolfo Sparks Interpreting Provider: Rodolfo Sparks - VTE Documentation of Mechanical Device: Intermittent pneumatic compression device Consult Discharge Plan - Plan Referrals: Jennifer Chand MD [Primary Care Provider] - <Marlon Dobbins - Last Filed: 02/25/18 20:12> Date of Encounter: 02/25/18 - Assessment and plan (1) Acute pyelonephritis Current Visit: Yes Status: Suspected (2) Pneumonia Current Visit: Yes Status: Acute Qualifiers: Pneumonia type: aspiration pneumonia Aspiration pneumonia type: due to gastric secretions Laterality: right Lung location: lower lobe of lung Qualified Code(s): J69.0 - Pneumonitis due to inhalation of food and vomit (3) Diabetes Current Visit: Yes Status: Chronic Qualifiers: Diabetes mellitus type: type 2 Diabetes mellitus assistant terminal manager insulin use: without assisted use Diabetes mellitus complication status: with kidney complications Diabetes mellitus complication detail: with chronic kidney disease Chronic kidney disease stage: stage 4 (severe) Qualified Code(s): E11.22 - Type 2 diabetes mellitus with diabetic chronic kidney disease; N18.4 - Chronic kidney disease, stage 4 (severe); N18.4 - Chronic kidney disease, stage 4 (severe); N18.4 - Chronic kidney disease, stage 4 (severe); N18.4 - Chronic kidney disease, stage 4 (severe) (4) Anemia Current Visit: Yes Status: Acute Qualifiers: Anemia type: due to chronic kidney disease Chronic kidney disease stage: stage 4 (severe) Qualified Code(s): N18.4 - Chronic kidney disease, stage 4 ( severe); D63.1 - Anemia in chronic kidney disease; D63.1 - Anemia in chronic kidney disease (5) Hypertension Current Visit: Yes Status: Chronic Qualifiers: Hypertension type: essential hypertension Qualified Code(s): I10 - Essential (primary) hypertension (6) Hypothyroidism Current Visit: Yes Status: Chronic Qualifiers: Hypothyroidism type: acquired Qualified Code(s): E03.9 - Hypothyroidism, unspecified (7) Morbid obesity with BMI of 45.0-49.9, adult Current Visit: Yes Status: Chronic - Time Spent With Patient Total time spent is greater than 50% in coordination of care (as documented) at patient's floor/unit and/or counseling patient: - Constitutional Vitals: Temp Pulse Resp BP Pulse Ox 97.8 F 77 15 144/86 99 02/25/18 16:00 02/25/18 16:00 02/25/18 16:00 02/25/18 16:00 02/25/18 16:00 Internal Medicine: Result - Labs CBC & Chem 7: 02/25/18 04:48 02/25/18 04:48 Labs: Short CBC 02/25/18 Range/Units 04:48 WBC 4.8 (4.3-11.1) K/mcL Hgb 8.7 L D (11.5-15.4) g/dL Hct 28.4 L (35.3-44.9) % Plt Count 165 (140-400) K/mcL Neutrophils # 3.1 (1.6-8.9) K/mcL BMP 02/24/18 02/25/18 02/25/18 22:46 04:48 04:48 Sodium 138 139 140 Potassium 5.3 H 5.2 H 5.1 Chloride 115 H 119 H 117 H Carbon Dioxide 18 L 17 L 17 L BUN 35 H 33 H 34 H Creatinine 2.80 H 2.65 H 2.68 H Glucose 97 67 L 68 L Calcium 8.6 8.2 L 8.3 L Liver Function 02/25/18 Range/Units 04:48 Albumin 3.2 L (3.5-5.7) g/dL - Impressions Impressions Retroperitoneum Ultrasound 02/25/18 15:30 IMPRESSION: Negative evaluation for obstructive uropathy. Color/power imaging was not performed, which is necessary to assess for acute pyelonephritis. D/ / Rodolfo Sparks / Rodolfo Sparks Interpreting Provider: Rodolfo Sparks - Attending Attestation I examined this patient and my medical decision-making was reviewed with the Resident Physician on 02/25/18. I agree with the documented findings, disposition and treatment plan as described except to the extent set forth below. Ms Gray is currently admitted for presumed acute pyelo and possible pneumonia. She remains moderate to high risk due to potential for worsening clinical status. Ms Gray is requesting pain meds. No fever at this time. No CP. No SOB. Back pain persists. Exam alert Comfortable at this time. Mucus membranes dry Heart not tachy No wheeze Abd soft I/P 1. Pyelo 2. Possible pneumonia Further diagnoses and plan as above.
[2018-02-26 05:24] LABS: Basophils % 0.5 %; Eosinophils # 0.1 K/mcL (0.0-0.6); Hemoglobin 8.7 g/dL (11.5-15.4); Immature Granulocytes % 0.2 % (0-4); Lymphocytes # 1.1 K/mcL (0.6-4.6); Lymphocytes % 26.4 %; Mean Corpuscular HGB Conc 31.1 g/dL (31.6-35.5); Mean Corpuscular Hemoglobin 28.5 pg (28.0-33.3); Mean Corpuscular Volume 91.8 fL (83.0-100.0); Mean Platelet Volume 10.4 fL (9.4-12.4); Monocytes # 0.2 K/mcL (0.0-1.3); Monocytes % 3.9 %; Neutrophils # 2.7 K/mcL (1.6-8.9); Platelet Count 154 K/mcL (140-400); Red Blood Count 3.05 M/mcL (3.82-4.97); Red Cell Distribution Width 14.6 % (11.5-14.5)
[2018-02-26 05:42] LABS: Calcium 8.5 mg/dL (8.6-10.3); Potassium 5.7 mEq/L (3.5-5.1)
[2018-02-26] MEDS: *HR* Heparin 5,000 UNIT/ML VIAL SQ SCH (06:05)
[2018-02-26] MEDS: *HR* HYDROcodone/Acet 5/325 mg TABLET PO PRN ×2 (06:05→10:16)
[2018-02-26 07:06] VITALS: BP 141/99
[2018-02-26] MEDS: Insulin LISPRO 300 UNITS/3 ML VIAL SQ SCH (08:31)
[2018-02-26] MEDS: amLODIPine 5 MG TABLET PO SCH (08:34)
[2018-02-26] MEDS: levoFLOXacin 750 MG TABLET PO SCH (08:35)
[2018-02-26] MEDS: cefTRIAXone 1,000 MG in Water for inj. (sterile) 20 ML 10 ML IVP SCH (08:35)
--- NOTE | 2018-02-26 09:37 | Nephrology Progress Note ---
Date of Encounter: 02/26/18 Time of Encounter: 09:10 - Assessment and Plan (1) CKD (chronic kidney disease) stage 4, GFR 15-29 ml/min Current Visit: Yes Status: Acute Based on negative urine and lack of clinical findings, afebrile, no dysuria, does not corellate with CT findings. Does not have pyelonephritis. Unclear etiology left flank discomfort. Will follow in office in 1-2 weeks with labs. Elevation in creatinine may be progressive kidney disease. Subjective Interval history: Continues to have intermittent left flank discomfort. Afebrile, denies dysuria. No new complaints. Objective - Vital Signs Vital signs: Vital Signs Temp Pulse Resp BP Pulse Ox 02/26/18 08:00 95 02/26/18 07:05 97.7 F 76 15 141/99 95 02/26/18 05:24 97.7 F 81 18 149/93 98 02/25/18 20:02 97.9 F 80 18 140/87 99 02/25/18 16:00 97.8 F 77 15 144/86 99 02/25/18 11:19 97.6 F 72 15 136/90 100 Intake and Output 02/25/18 02/26/18 02/26/18 23:59 07:59 15:59 Intake Total 360 / 360 50 / 50 360 / 360 Output Total 500 / 500 300 / 300 Balance -140 / -140 -250 / -250 360 / 360 Intake: Oral 360 / 360 50 / 50 360 / 360 Output: Urine 500 / 500 300 / 300 Other: Meal Dinner Breakfast Percent of Meal Consumed 100% 100% # Voids 2 Weight 128.9 kg Blood Glucose* 128 112 Patient Weight 02/26/18 23:59 Weight 128.9 kg - General Appearance General appearance: Present: well-developed, well-nourished, appears started age EENT: Present: mucous membranes moist Neck: Present: no JVD Respiratory: Present: clear Cardiology: Present: no edema, regular rate, regular rhythm Gastrointestinal: Present: normoactive bowel sounds Integumentary: Present: warm and dry Neurologic: Present: alert and oriented x3 - Lab 02/26/18 05:05 02/26/18 05:05 Most recent lab results Calcium 8.5 mg/dL (8.6-10.3) L 02/26/18 05:05 Phosphorus 4.9 mg/dL (2.7-4.5) H 02/25/18 04:48 Magnesium 1.7 mg/dL (1.6-2.6) 02/24/18 22:46 Urine Sodium 123.2 mEq/L 02/25/18 05:10 - VTE Documentation of Mechanical Device: Intermittent pneumatic compression device Consult Discharge Plan - Plan Referrals: Jennifer Chand MD [Primary Care Provider] -
--- NOTE | 2018-02-26 11:27 | Discharge Summary ---
<Mitul Dimas - Last Filed: 02/26/18 17:03> - NOTES TO OUTPATIENT PROVIDER Notes to Outpatient Provider: The patient does have significant CK D which appears to potentially be progressing. She continues to have significant pain, however she generally describes this as of 4/10 pain in intensity, and finds that nothing truly alleviates other than strong narcotic pain medication. I felt that long-term prescription of this medication in a patient with no obvious organic etiology of pain would be an appropriate. I did discharge the patient with lab order for repeat BMP in 1 week, and the patient should follow up with nephrology as well. The patient did have abnormal findings on abdominal CT, which recommended follow-up CT in 2-5 months. She was also discharged on total 7 day course of Levaquin for likely aspiration pneumonia. She may require chest x-ray follow-up in one month. Date of Encounter: 02/26/18 Time of Encounter: 09:35 - Discharge Diagnosis (1) Pyelonephritis Priority: Primary Status: Ruled-out (2) Pneumonia Priority: Primary Status: Acute Qualifiers: Pneumonia type: aspiration pneumonia Aspiration pneumonia type: due to gastric secretions Laterality: right Lung location: lower lobe of lung Qualified Code(s): J69.0 - Pneumonitis due to inhalation of food and vomit (3) CKD (chronic kidney disease) Priority: Secondary Status: Acute Qualifiers: Chronic kidney disease stage: stage 4 (severe) Qualified Code(s): N18.4 - Chronic kidney disease, stage 4 (severe) (4) Anemia Priority: Secondary Status: Acute Qualifiers: Anemia type: due to chronic kidney disease Chronic kidney disease stage: stage 4 (severe) Qualified Code(s): N18.4 - Chronic kidney disease, stage 4 ( severe); D63.1 - Anemia in chronic kidney disease; D63.1 - Anemia in chronic kidney disease (5) Diabetes Priority: Secondary Status: Chronic Qualifiers: Diabetes mellitus type: type 2 Diabetes mellitus fpc insulin use: without terminal block assembler use Diabetes mellitus complication status: with kidney complications Diabetes mellitus complication detail: with chronic kidney disease Chronic kidney disease stage: stage 4 (severe) Qualified Code(s): E11.22 - Type 2 diabetes mellitus with diabetic chronic kidney disease; N18.4 - Chronic kidney disease, stage 4 (severe); N18.4 - Chronic kidney disease, stage 4 (severe); N18.4 - Chronic kidney disease, stage 4 (severe); N18.4 - Chronic kidney disease, stage 4 (severe) Hospital course: Ms. Gray is a 47 year old female with history of chronic kidney disease stage IV, diabetes, hypertension who presented to the ED with gradual onset of left flank pain and lower abdominal pain. She says that it been going on for approximately one day, and was over 10 in intensity. She describes the pain as sharp and constant. Nothing seemed to help or make the pain any worse. She does admit that she has had a history of renal stones which required lithotripsy approximately 10 years ago, and she has been on allopurinol for approximately one year. In the ED, the patient did apparently demonstrate significant left flank pain with CVA tenderness and there was concern about possible pyelonephritis. She did receive a CT of the abdomen and pelvis which demonstrated perinephric edema and inflammation which could be consistent with pyelonephritis. Additionally, the patient's CT did demonstrate a possible right lower lobe pneumonia. Upon questioning, the patient did endorse that she has had a cough over the past day or 2. She was initially started on ceftriaxone for coverage of community-acquired pneumonia, and also for double coverage of possible pyelonephritis. Urinalysis did not demonstrate any significant abnormalities. Additionally, labs did not demonstrate significant signs of infection. The patient was watched clinically and seemed to improve. Upon further questioning, it was noted the patient is having significant GERD symptoms and does admit to symptoms of reflux or regurgitation in the morning. I was concerned that the patient may be experiencing an aspiration pneumonia versus community acquired pneumonia, so I did modify her antibiotics to include Levaquin for coverage of possible aspiration pneumonia. Nephrology did see the patient and recommended a renal ultrasound which noted cortical thinning bilaterally without obvious lithiasis or hydronephrosis and no obvious pyelonephritis. Urine culture remained negative. Upon agreement with nephrology , treatment for acute pyelonephritis was discontinued. The patient continued to have some pain, however clinically appeared to be improving and was otherwise stable. The patient was discharged with order for repeat BMP in 1 week, as well as follow-up with nephrology in 1 week. She was instructed to follow up with primary care in 3-5 days. The patient was also discharged on Levaquin for a total of a 7 day course for possible aspiration pneumonia. The patient was instructed that Tylenol is appropriate for pain management, however she may approach her primary care or visit the ER if pain becomes unmanageable. The patient understands and agrees to this plan. Discharge discussed with: patient, nurse, case management, practice management consultant - Time Spent with Patient Total time spent providing and/or coordinating discharge services: Greater than 30 minutes - Discharge Medications Prescriptions: Cyclobenzaprine [Flexeril] 10 mg PO TID PRN #10 tablet PRN Reason: back pain HYDROcodone/Acet 5/325 mg [[place] 5-325 mg] 1 tab PO Q6H PRN 2 Days #10 tab PRN Reason: Pain levoFLOXacin [Levaquin] 750 mg PO DAILY #3 tablet Omeprazole [PriLOSEC] 20 mg PO BIDAC #60 capsule.dr Lopez Medications: Allopurinol [Zyloprim 100 MG] 100 mg PO DAILY 02/24/18 [History] Calcitriol [Rocaltrol] 0.25 mcg PO DAILY 02/24/18 [History] Enalapril Maleate [Vasotec] 20 mg PO DAILY 02/24/18 [History] Glimepiride [Amaryl] 4 mg PO QAM 02/24/18 [History] Levothyroxine [Synthroid] 75 mcg PO 0630 02/24/18 [History] Sodium Bicarbonate 650 mg PO BID 02/24/18 [History] amLODIPine [Norvasc] 5 mg PO BID 02/24/18 [History] Cyclobenzaprine [Flexeril] 10 mg PO TID PRN #10 tablet 02/26/18 [Rx] HYDROcodone/Acet 5/325 mg [[place] 5-325 mg] 1 tab PO Q6H PRN 2 Days #10 tab 02/26 [Rx] Omeprazole [PriLOSEC] 20 mg PO BIDAC #60 capsule. 02/26/18 [Rx] levoFLOXacin [Levaquin] 750 mg PO DAILY #3 tablet 02/26/18 [Rx] Allergies/Adverse Reactions: 3 Allergy/AdvReac Type Severity Reaction Status Date / Time No Known Allergies Allergy Verified 11/16/16 16:44 Date of admission: 02/24/18 22:06 Primary care physician: Jennifer Chand Consults: 02/25/18 10:21 Consult to Nephrology [CONS] Routine Consulting Provider: [facility] AGNIESZKA Reason for Consult: wrong consult Agnieszka's patient. LEONCIO/CKD Call Completed: No Discharging clinician: Mitul Dimas Anticipated date of discharge: 02/26/18 - Constitutional Vitals: Temp Pulse Resp BP Pulse Ox 97.7 F 76 15 141/99 95 02/26/18 07:05 02/26/18 07:05 02/26/18 07:05 02/26/18 07:05 02/26/18 08:00 General appearance: Present: mild distress, A&O X 3, obese Exam: Gen: Vitals noted. No acute distress. Appears comfortable and relaxed. AAOx3 HEENT: oropharynx clear with poor dentition, Normocephalic, atraumatic Neck: Supple. No adenopathy. Cardiac: RRR, no murmur, +S1/S2 Pulmonary: CTA bilaterally, no wheezes, rales or rhonchi, equal chest expansion Abdomen: soft, minimal tenderness to palpation of left lower quadrant Back: Left sided CVA tenderness is present MSK: ROM intact, no joint swelling noted Extremities: no BLE edema, nontender calf, no cyanosis or clubbing Neuro: moves all extremities, no focal deficits Psych: Appropriate mood and behavior. - Patient Status Disposition: Home, Self-Care Condition: Fair Functional capacity at discharge: independent ambulation Overall status at discharge: patient is progressing back to baseline - Ambulatory Orders Ambulatory Orders: Basic Metabolic Panel [CHEM] Time Frame: 1 Week, Location: any - Discharge Instructions Instructions: Acute Kidney Injury (GEN), Renal Failure Diet (DC), Hyperkalemia (GEN) Follow Up With: Jennifer Chand MD [Primary Care Provider] - 03/03/18 3:15 pm Additional Instructions: Patient should continue 3 more days of levaquin for pneumonia Continue Omeprazole BID for GERD symptoms For flank pain, Tylenol 1g every 8 hours is acceptable. Avoid NSAIDS like advil due to kidney injury Repeat Lab in 1 week, follow-up with nephrology after Continue strict renal diet for electrolyte management Follow-up with PCP in 3-5 days Return to ED for any fevers, chills, sweats, chest pains or shortness of breath. Return for any continued or worsening of pain - Diet and Activity Activity: increase activity as tolerated, resume usual activities as tolerated Diet: other (Renal diet ) - VTE Documentation of Mechanical Device: Intermittent pneumatic compression device <MuMarlon Lao - Last Filed: 02/26/18 19:05> Date of Encounter: 02/26/18 - Discharge Diagnosis (1) Acute pyelonephritis Priority: Primary Status: Suspected (2) Pneumonia Status: Acute Qualifiers: Pneumonia type: aspiration pneumonia Aspiration pneumonia type: due to gastric secretions Laterality: right Lung location: lower lobe of lung Qualified Code(s): J69.0 - Pneumonitis due to inhalation of food and vomit (3) Sacroiliitis Priority: Primary Status: Acute (4) Diabetes Status: Chronic Qualifiers: Diabetes mellitus type: type 2 Diabetes mellitus fpc insulin use: without fpc use Diabetes mellitus complication status: with kidney complications Diabetes mellitus complication detail: with chronic kidney disease Chronic kidney disease stage: stage 4 (severe) Qualified Code(s): E11.22 - Type 2 diabetes mellitus with diabetic chronic kidney disease; N18.4 - Chronic kidney disease, stage 4 (severe); N18.4 - Chronic kidney disease, stage 4 (severe); N18.4 - Chronic kidney disease, stage 4 (severe); N18.4 - Chronic kidney disease, stage 4 (severe) (5) Anemia Status: Chronic Qualifiers: Anemia type: due to chronic kidney disease Chronic kidney disease stage: stage 4 (severe) Qualified Code(s): N18.4 - Chronic kidney disease, stage 4 ( severe); D63.1 - Anemia in chronic kidney disease; D63.1 - Anemia in chronic kidney disease (6) Hypertension Priority: Secondary Status: Chronic Qualifiers: Hypertension type: essential hypertension Qualified Code(s): I10 - Essential (primary) hypertension (7) Hypothyroidism Priority: Secondary Status: Chronic Qualifiers: Hypothyroidism type: acquired Qualified Code(s): E03.9 - Hypothyroidism, unspecified (8) Morbid obesity with BMI of 45.0-49.9, adult Priority: Secondary Status: Chronic Hospital course: Ms. Gray is a 47 year old female - Time Spent with Patient Total time spent providing and/or coordinating discharge services: 39min Date of admission: 02/24/18 22:06 Primary care physician: Jennifer Chand Consults: 02/25/18 10:21 Consult to Nephrology [CONS] Routine Consulting Provider: [facility] AGNIESZKA Reason for Consult: wrong consult Agnieszka's patient. LEONCIO/CKD Call Completed: No - Constitutional Vitals: Temp Pulse Resp BP Pulse Ox 97.7 F 76 15 141/99 95 02/26/18 07:05 02/26/18 07:05 02/26/18 07:05 02/26/18 07:05 02/26/18 08:00 - Attending Attestation I examined this patient and my medical decision-making was reviewed with the Resident Physician on 02/26/18. I agree with the documented findings, disposition and treatment plan as described except to the extent set forth below. Ms Gray has been admitted for presumed acute pyelo. Workup negative thus far. She is afebrile at this time. She has pain over L sacroiliac joint. She is ready for discharge home. Exam Alert Comfortable Mucus membranes dry Heart reg No wheeze Tender L SI area. Plan D/C home today I gave 10 [place] and 10 Flexeril.
--- NOTE | 2018-02-27 13:34 | Electrocardiograph Report ---
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
--- NOTE | 2018-02-27 13:38 | Electrocardiograph Report ---
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
== END 2018-02-26 14:26 | disposition home or self-care (01) | DRG 178 ==
LOC: 2NENU 12:36 → EMEROO 12:36 → 2NENU 20:10
PROVIDERS: ADMIT Internal Medicine; ATTEND Internal Medicine